=== PATIENT | female | born 1975 | race Caucasian/White ===

== ENCOUNTER 2023-07-09 21:07 | Emergency (ER) | payer OTHER ==
[~2023-07-09] VITALS: Ht 167.6 cm; Wt 71.0 kg
[2023-07-09 21:22] VITALS: O2SAT 97
[2023-07-09] MEDS: IBUPROFEN 600MG TABLET PO STA (22:50)
[2023-07-10] MEDS ORDERED: IBUP-2028 MT (00:55)
[2023-07-10 01:10] VITALS: BP 127/55; PULSE 72; RESP 15; TEMP 98
== END 2023-07-10 01:16 | disposition home or self-care (01) ==
LOC: ER 21:07
DX: R51.9 Headache, unspecified (principal)
CPT/HCPCS: 99284